=== PATIENT | female | born 1965 | race Caucasian/White ===

== ENCOUNTER → 2021-03-30 | Day surgery (SDC) | payer OTHER, MEDICAID ==
[~2021-03-30] VITALS: Ht 149.9 cm; Wt 67.1 kg
[~2021-03-30] MED LIST: AMOX500C PO; ASPI81TA26 PO; ATOR80TA59 PO; CALC-211 PO; FOLI1TAB11 PO; GABA-282 PO; GNP99TAB3 PO; INSUHUMDS SC; LACRILUBE (AKWA TEARS) OPHTH OINT 3.5 GM As Ordered ONE; LIDOCAINE 2% 100MG/5ML SDV (FOR ANES.) As Ordered ONE; LISI10TA22 PO; MIDAZOLAM INJ 2MG/2ML VIAL (J2250 PER 1MG) As Ordered ONE; PANT40TA29 PO; PLAV1TAB2 PO; PRAM1TAB7 PO; PROBCAP14 PO; ROCURONIUM BROMIDE 50 MG/5 ML VIAL As Ordered ONE; SING10TA32 PO; TOUJ1.2I SC; VITA100054 PO; fentaNYL 100 MCG/2 ML INJECTION As Ordered ONE; propofoL 200 MG/20 ML VIAL As Ordered ONE
== END | disposition home or self-care (01) ==
LOC: M SDC 07:04
PROVIDERS: ATTEND Dentist Oral and Maxillofacial Surgery
DX: Z53.8 Procedure and treatment not carried out for other reasons (principal)

== ENCOUNTER → 2021-04-27 | Day surgery (SDC) | payer OTHER, MEDICAID ==
[~2021-04-27] VITALS: Ht 152.4 cm; Wt 69.4 kg
[~2021-04-27] MED LIST changes: +ACETAMINOPHEN 1000MG 100ML IV BTL (OFIRMEV) (J0131 PER 10MG) As Ordered ONE; -LACRILUBE (AKWA TEARS) OPHTH OINT 3.5 GM As Ordered ONE; +LIDOCAINE 1% MDV 20ML VIAL SQ PRN; -LIDOCAINE 2% 100MG/5ML SDV (FOR ANES.) As Ordered ONE; +LIDOCAINE 2% INJ 100 MG/5 ML SYRINGE As Ordered ONE; +LIDOCAINE W/EPINEPHRINE 1% 20ML VIAL As Ordered ONE; +LR 1,000 ML IV ONE; +ONDANSETRON 4MG/2ML VIAL As Ordered ONE; +SUGAMMADEX SODIUM 500 MG/5 ML VIAL (BRIDION) As Ordered ONE; +dexameTHASONE 4 MG/ML 1ML VIAL (J1100 PER 1MG) As Ordered ONE
[2021-04-27 08:10] VITALS: BP 143/82
== END | disposition home or self-care (01) ==
LOC: M SDC 07:35
PROVIDERS: ATTEND Dentist Oral and Maxillofacial Surgery
DX: Z53.09 Procedure and treatment not carried out because of other contraindication (principal)

== ENCOUNTER 2024-10-09 00:25 | Emergency (ER) | payer OTHER, MEDICAID ==
[~2024-10-09] VITALS: Ht 152.4 cm; Wt 65.9 kg
[~2024-10-09 00:25] MED LIST changes: -ACETAMINOPHEN 1000MG 100ML IV BTL (OFIRMEV) (J0131 PER 10MG) As Ordered ONE; +CHOL25CA2 PO; +CLOP75TA99 PO; +GABA-1172 PO; -GABA-282 PO; -LIDOCAINE 1% MDV 20ML VIAL SQ PRN; -LIDOCAINE 2% INJ 100 MG/5 ML SYRINGE As Ordered ONE; -LIDOCAINE W/EPINEPHRINE 1% 20ML VIAL As Ordered ONE; -LR 1,000 ML IV ONE; -MIDAZOLAM INJ 2MG/2ML VIAL (J2250 PER 1MG) As Ordered ONE; +MONT-5 PO; -ONDANSETRON 4MG/2ML VIAL As Ordered ONE; -PLAV1TAB2 PO; -ROCURONIUM BROMIDE 50 MG/5 ML VIAL As Ordered ONE; -SING10TA32 PO; -SUGAMMADEX SODIUM 500 MG/5 ML VIAL (BRIDION) As Ordered ONE; -VITA100054 PO; -dexameTHASONE 4 MG/ML 1ML VIAL (J1100 PER 1MG) As Ordered ONE; -fentaNYL 100 MCG/2 ML INJECTION As Ordered ONE; -propofoL 200 MG/20 ML VIAL As Ordered ONE
[2024-10-09 01:17] LABS: PLATELET COUNT, AUTOMATED 303 10^3/uL (150-450)
[2024-10-09 01:55] LABS: ALT/SGPT 36 U/L (7.0-40); AST/SGOT 53 U/L (<34); CALCIUM LEVEL 8.6 MG/DL (8.3-10.6); CARBON DIOXIDE LEVEL 21 MMOL/L (20-31); CHLORIDE LEVEL 109 MMOL/L (98-107); CREATININE FOR GFR 0.76 MG/DL (0.55-1.30); GLOMERULAR FILTRATION RATE 89.7 (>45); POTASSIUM SERUM 4.7 MMOL/L (3.5-5.1); SODIUM LEVEL 142 MMOL/L (136-145)
[2024-10-09] MEDS: NS (Normal Saline) 0.9% 1,000 ML IV ONE (05:20)
[2024-10-09 05:27] LABS: ETHYL ALCOHOL (ETHANOL) < 0.003 % (0.000-0.010)
[2024-10-09 05:28] LABS: VENOUS BASE EXCESS -3.1 (-2.0-2.0); VENOUS HCO3 21.9 MMOL/L (23.0-27.0); VENOUS O2 SATURATION 93.6 % (60.0-80.0); VENOUS PARTIAL PRESSURE CO2 38.8 mmHg (38.0-50.0); VENOUS PARTIAL PRESSURE O2 69.3 mmHg (30.0-50.0); VENOUS PH 7.369 UNITS (7.330-7.430); VENOUS STANDARD HCO3 21.8 MMOL/L; VENOUS TOTAL CO2 23.1 MMOL/L (24.0-28.0)
[2024-10-09 05:28] LABS: C REACTIVE PROTEIN QUANTITATIV 3.53 MG/DL (<1.0)
[2024-10-09] MEDS: ACETAMINOPHEN *IV* 1,000 MG in IV 1 EA IV ONE (05:43)
[2024-10-09 05:50] LABS: KETONE, URINE AUTO RFX NEGATIVE (NEGATIVE); LEUKOCYTE ESTERASE UR AUTO RFX NEGATIVE (NEGATIVE); MUCUS, URINE RFX SMALL (NEGATIVE); NITRITE, URINE AUTO RFX NEGATIVE (NEGATIVE); RBC, URINE AUTO RFX 0 /HPF (0-3); SQUAM EPITHELIAL CELL UR AURFX 3 /HPF (0-6); WBC, URINE AUTO RFX 2 /HPF (0-3)
[2024-10-09 06:03] LABS: AMPHETAMINES LEVEL URINE NEGATIVE (NEGATIVE); BARBITURATES URINE NEGATIVE (NEGATIVE); BENZODIAZEPINES URINE NEGATIVE (NEGATIVE); CANNABINOIDS URINE NEGATIVE (NEGATIVE); COCAINE METABOLITE URINE NEGATIVE (NEGATIVE); METHADONE URINE NEGATIVE (NEGATIVE); PHENCYCLIDINE URINE NEGATIVE (NEGATIVE)
[2024-10-09 06:04] LABS: OPIATES URINE POSITIVE (NEGATIVE)
[2024-10-09 09:00] VITALS: BP 149/82; TEMP 97.8
[2024-10-09 09:45] VITALS: O2SAT 98
== END 2024-10-09 10:00 | disposition left against medical advice (07) ==
LOC: M ED 00:25
DX: E11.621 Type 2 diabetes mellitus with foot ulcer (principal); L97.529 Non-pressure chronic ulcer of other part of left foot with unspecified severity; Z53.20 Procedure and treatment not carried out because of patient's decision for unspecified reasons; Z88.1 Allergy status to other antibiotic agents; Z88.5 Allergy status to narcotic agent; Z88.8 Allergy status to other drugs, medicaments and biological substances; Z91.041 Radiographic dye allergy status; I69.351 Hemiplegia and hemiparesis following cerebral infarction affecting right dominant side; K50.90 Crohn's disease, unspecified, without complications; Z79.899 Other long term (current) drug therapy; Z79.4 Long term (current) use of insulin
CPT/HCPCS: 71045; 73630; 80053; 80307; 81001; 82077; 82140; 82803; 83605; 84145; 85027; 86140; 87040; 87486; 87581; 87633; 87798; 96365; 96366; 99285; J0131

== ENCOUNTER 2024-11-21 16:03 | Emergency (ER) | payer OTHER, MEDICAID ==
[~2024-11-21] VITALS: Ht 170.2 cm; Wt 63.2 kg
[2024-11-21] MEDS: LIDOCAINE 2% 5 ML JELLY UROJET TOP ONE (16:20)
[2024-11-21 16:34] LABS: VENOUS BASE EXCESS 0.3 (-2.0-2.0); VENOUS HCO3 23.7 MMOL/L (23.0-27.0); VENOUS O2 SATURATION 97.4 % (60.0-80.0); VENOUS PARTIAL PRESSURE CO2 33.9 mmHg (38.0-50.0); VENOUS PARTIAL PRESSURE O2 101.2 mmHg (30.0-50.0); VENOUS PH 7.463 UNITS (7.330-7.430); VENOUS STANDARD HCO3 24.8 MMOL/L; VENOUS TOTAL CO2 24.8 MMOL/L (24.0-28.0)
[2024-11-21 16:38] LABS: BASO # 0.0 10^3/uL (0.0-0.2); BASO % 0.4 % (0.0-1.0); EOS # 0.4 10^3/uL (0.0-0.5); EOS % 3.8 % (0.0-3.0); LYMPH # 2.0 10^3/uL (1.5-5.0); LYMPH % 21.5 % (24.0-44.0); MONO # 0.7 10^3/uL (0.0-0.8); MONO % 7.3 % (2.0-8.0); NEUTROPHILS # 6.1 10^3/uL (1.5-8.5); NEUTROPHILS % 66.7 % (36.0-66.0); PLATELET COUNT, AUTOMATED 285 10^3/uL (150-450)
[2024-11-21 16:59] LABS: ERYTHROCYTE SEDIMENTATION RATE 78 mm/hr (0-30)
[2024-11-21 17:07] LABS: INR 1.39
[2024-11-21 17:14] LABS: C REACTIVE PROTEIN QUANTITATIV < 0.50 MG/DL (<1.0)
[2024-11-21 17:36] LABS: ALT/SGPT 39 U/L (7.0-40); AST/SGOT 47 U/L (<34); CALCIUM LEVEL 9.7 MG/DL (8.3-10.6); CARBON DIOXIDE LEVEL 24 MMOL/L (20-31); CHLORIDE LEVEL 106 MMOL/L (98-107); CK-MB VALUE MASS 1.4 NG/ML (<3.6); CPK CREATINE PHOSPHOKINASE 91 U/L (34-145); CREATININE FOR GFR 0.69 MG/DL (0.55-1.30); GLOMERULAR FILTRATION RATE > 90.0 (>45); MAGNESIUM LEVEL 1.8 MG/DL (1.8-2.4); MB/CK RELATIVE INDEX 1.53 (< OR =4); POTASSIUM SERUM 4.0 MMOL/L (3.5-5.1); SODIUM LEVEL 139 MMOL/L (136-145)
[2024-11-21 18:14] LABS: CK-MB VALUE MASS 1.3 NG/ML (<3.6)
[2024-11-21 18:16] LABS: KETONE, URINE AUTO RFX NEGATIVE (NEGATIVE); LEUKOCYTE ESTERASE UR AUTO RFX NEGATIVE (NEGATIVE); MUCUS, URINE RFX SMALL (NEGATIVE); NITRITE, URINE AUTO RFX NEGATIVE (NEGATIVE); RBC, URINE AUTO RFX 44 /HPF (0-3); SQUAM EPITHELIAL CELL UR AURFX 6 /HPF (0-6); WBC, URINE AUTO RFX 3 /HPF (0-3)
[2024-11-21 18:24] LABS: CPK CREATINE PHOSPHOKINASE 63 U/L (34-145); MB/CK RELATIVE INDEX 2.06 (< OR =4)
[2024-11-21] MEDS: NS 500 ML IV ONE (20:37)
[2024-11-21] MEDS: ACETAMINOPHEN *IV* 1,000 MG in IV 1 EA IV ONE (20:38)
[2024-11-21 22:30] VITALS: BP 116/82; TEMP 96.3; O2SAT 98
== END 2024-11-21 22:45 | disposition home or self-care (01) ==
LOC: M ED 16:03
DX: R56.9 Unspecified convulsions (principal); R19.7 Diarrhea, unspecified; S22.32XA Fracture of one rib, left side, initial encounter for closed fracture; M41.82 Other forms of scoliosis, cervical region; I45.81 Long QT syndrome; I25.119 Atherosclerotic heart disease of native coronary artery with unspecified angina pectoris; Z87.891 Personal history of nicotine dependence; Z79.1 Long term (current) use of non-steroidal anti-inflammatories (NSAID); Z79.4 Long term (current) use of insulin; Z79.899 Other long term (current) drug therapy; X58.XXXA Exposure to other specified factors, initial encounter
CPT/HCPCS: 51701; 70450; 71045; 71250; 72125; 74176; 80047; 80048; 80076; 81001; 82150; 82550; 82553; 82803; 83605; 83690; 83735; 84145; 84484; 85025; 85610; 85652; 85730; 86140; 86850; 86900; 86901; 87040; 87486; 87507; 87581; 87633; 87798; 93005; 93041; 94760; 96365; 96375; 99285; J0131; J2060

== ENCOUNTER 2025-01-20 16:19 | Inpatient (IN) | payer OTHER, MEDICAID ==
[~2025-01-20] VITALS: Ht 157.5 cm; Wt 61.6 kg
[~2025-01-20 16:19] MED LIST changes: -CHOL25CA2 PO; +D3 H10003 PO
[2025-01-20 16:32] VITALS: TEMP 96
[2025-01-20 17:53] LABS: BASO # 0.0 10^3/uL (0.0-0.2); BASO % 0.0 % (0.0-1.0); EOS # 0.3 10^3/uL (0.0-0.5); EOS % 3.9 % (0.0-3.0); LYMPH # 1.9 10^3/uL (1.5-5.0); LYMPH % 28.3 % (24.0-44.0); MONO # 0.4 10^3/uL (0.0-0.8); MONO % 5.8 % (2.0-8.0); NEUTROPHILS # 4.1 10^3/uL (1.5-8.5); NEUTROPHILS % 61.9 % (36.0-66.0); PLATELET COUNT, AUTOMATED 321 10^3/uL (150-450)
[2025-01-20 18:14] LABS: C REACTIVE PROTEIN QUANTITATIV 0.69 MG/DL (<1.0)
[2025-01-20 18:15] LABS: INR 1.07
[2025-01-20 18:23] LABS: ALT/SGPT 20 U/L (7.0-40); AST/SGOT 20 U/L (<34); CALCIUM LEVEL 8.5 MG/DL (8.3-10.6); CARBON DIOXIDE LEVEL 21 MMOL/L (20-31); CHLORIDE LEVEL 112 MMOL/L (98-107); CREATININE FOR GFR 0.70 MG/DL (0.55-1.30); GLOMERULAR FILTRATION RATE > 90.0 (>45); POTASSIUM SERUM 3.6 MMOL/L (3.5-5.1); SODIUM LEVEL 143 MMOL/L (136-145)
[2025-01-20] MEDS: VANCOMYCIN HCL 1,250 MG, VIAL MATE ADAPTER 1 EACH in NS 250 ML IV ONE (19:05)
[2025-01-20] MEDS: PRAMIPEXOLE 1 MG TAB PO SCH (21:00)
[2025-01-20] MEDS: busPIRone 5 MG TAB PO SCH (21:00)
[2025-01-20] MEDS ORDERED: FLUO-365 PO (21:01)
[2025-01-20] MEDS ORDERED: BUSP1TAB PO (21:01)
[2025-01-20] MEDS ORDERED: HOME MED LIST COMPLETE! XX SCH (21:05)
[2025-01-20] MEDS ORDERED: VANCOMYCIN HCL 1,000 MG in IV FLUID PLACE HOLDER 1 EA IV SCH (21:45)
[2025-01-20] MEDS ORDERED: AZTREONAM 2 GM in DEXTROSE 5% (D5W) MINI-BAG PLU 100 ML IV SCH (21:45)
[2025-01-20 22:53] LABS: METHADONE URINE NEGATIVE (NEGATIVE)
[2025-01-20 22:54] LABS: AMPHETAMINES LEVEL URINE NEGATIVE (NEGATIVE); BARBITURATES URINE NEGATIVE (NEGATIVE); CANNABINOIDS URINE NEGATIVE (NEGATIVE); COCAINE METABOLITE URINE NEGATIVE (NEGATIVE); OPIATES URINE NEGATIVE (NEGATIVE); PHENCYCLIDINE URINE NEGATIVE (NEGATIVE)
[2025-01-20 22:58] LABS: BENZODIAZEPINES URINE POSITIVE (NEGATIVE)
[2025-01-20 23:39] LABS: ESTIMATED AVERAGE GLUCOSE 143.0 MG/DL (60-110)
[2025-01-20] MEDS ORDERED: GLUCAGON INJ 1 MG VIAL SC PRN (23:40)
[2025-01-20] MEDS ORDERED: DEXTROSE 50% 50 ML SYRINGE IV PRN (23:40)
[2025-01-20] MEDS ORDERED: GLUCOSE 4 GM CHEW PO PRN (23:40)
[2025-01-21] MEDS: LanTUS (INSULIN GLARGINE INJ) 1 UNITS/0.01 ML SC SCH (00:06)
[2025-01-21] MEDS ORDERED: PILL CUTTER 1 EACH XX PRN (00:10)
[2025-01-21 01:31] VITALS: BP 122/59; O2SAT 95
[2025-01-21] MEDS: CEFEPIME HCL 2 GM in DEXTROSE 5% (D5W) ADV/MINI-BAG 50 ML IV SCH (02:59)
[2025-01-21] MEDS: VANCOMYCIN HCL 750 MG, VIAL MATE ADAPTER 1 EACH in NS 250 ML IV SCH (03:59)
[2025-01-21] MEDS ORDERED: INSULIN LISPRO (NovoLOG) PER UNIT SC SCH ×3 (07:30→21:00)
[2025-01-21] MEDS ORDERED: CLOPIDOGREL 75 MG TAB PO SCH (09:00)
[2025-01-21] MEDS ORDERED: ATORVASTATIN 20 MG TAB PO SCH (09:00)
[2025-01-21] MEDS ORDERED: ASPIRIN 81 MG ENTERIC TABLET PO SCH (09:00)
[2025-01-21] MEDS ORDERED: FOLIC ACID 1 MG TAB PO SCH (09:00)
[2025-01-21] MEDS ORDERED: ENOXAPARIN 40 MG/0.4 ML SYRINGE (J1650 PER 10MG) SC SCH (09:00)
[2025-01-21] MEDS ORDERED: FLUoxetine 20 MG CAP PO SCH (09:00)
[2025-01-21] MEDS ORDERED: PANTOPRAZOLE 40MG TAB PO SCH (09:00)
[2025-01-21] MEDS ORDERED: ACETAMINOPHEN 325 MG TAB PO PRN (09:30)
[2025-01-21] MEDS ORDERED: LanTUS (INSULIN GLARGINE INJ) 1 UNITS/0.01 ML SC SCH (21:00)
== END 2025-01-21 05:16 | disposition left against medical advice (07) | DRG 638 ==
LOC: EDBD 16:19 → M ED 16:19 → M ED INP 21:43
PROVIDERS: ADMIT Student in an Organized Health Care Education/Training Program; ATTEND Student in an Organized Health Care Education/Training Program
DX: E11.621 Type 2 diabetes mellitus with foot ulcer (principal); I69.351 Hemiplegia and hemiparesis following cerebral infarction affecting right dominant side; D50.9 Iron deficiency anemia, unspecified; F32.A Depression, unspecified; I10 Essential (primary) hypertension; L97.519 Non-pressure chronic ulcer of other part of right foot with unspecified severity; F41.9 Anxiety disorder, unspecified; Z89.512 Acquired absence of left leg below knee; Z79.4 Long term (current) use of insulin; Z79.82 Long term (current) use of aspirin; Z79.02 Long term (current) use of antithrombotics/antiplatelets; Z79.899 Other long term (current) drug therapy; Z88.0 Allergy status to penicillin; Z88.1 Allergy status to other antibiotic agents; Z88.5 Allergy status to narcotic agent; Z88.2 Allergy status to sulfonamides; Z88.7 Allergy status to serum and vaccine; Z88.8 Allergy status to other drugs, medicaments and biological substances

== ENCOUNTER 2025-02-04 02:59 | Emergency (ER) | payer OTHER, MEDICAID ==
[~2025-02-04] VITALS: Ht 152.4 cm; Wt 65.9 kg
[~2025-02-04 02:59] MED LIST changes: +BUSP1TAB PO; +FLUO-365 PO
[2025-02-04] MEDS ORDERED: ISOVUE-370 76% 100 ML VIAL As Ordered ONE (04:18)
[2025-02-04 04:23] LABS: BASO # 0.0 10^3/uL (0.0-0.2); BASO % 0.2 % (0.0-1.0); EOS # 0.4 10^3/uL (0.0-0.5); EOS % 3.9 % (0.0-3.0); LYMPH # 1.9 10^3/uL (1.5-5.0); LYMPH % 20.9 % (24.0-44.0); MONO # 0.5 10^3/uL (0.0-0.8); MONO % 5.4 % (2.0-8.0); NEUTROPHILS # 6.3 10^3/uL (1.5-8.5); NEUTROPHILS % 69.3 % (36.0-66.0); PLATELET COUNT, AUTOMATED 243 10^3/uL (150-450)
[2025-02-04] MEDS: NS 500 ML IV ONE (04:25)
[2025-02-04] MEDS: diphenhydrAMINE 50 MG/ML VIAL IV STA (04:25)
[2025-02-04 04:52] LABS: C REACTIVE PROTEIN QUANTITATIV < 0.50 MG/DL (<1.0); CALCIUM LEVEL 8.2 MG/DL (8.3-10.6); CARBON DIOXIDE LEVEL 21 MMOL/L (20-31); CHLORIDE LEVEL 112 MMOL/L (98-107); CREATININE FOR GFR 0.65 MG/DL (0.55-1.30); GLOMERULAR FILTRATION RATE > 90.0 (>45); POTASSIUM SERUM 4.3 MMOL/L (3.5-5.1); SODIUM LEVEL 145 MMOL/L (136-145)
[2025-02-04] MEDS ORDERED: OXYCODONE/APAP 5MG/325MG(HOME DOSE PACK) PO ONE (05:30)
[2025-02-04] MEDS ORDERED: ONDA-282 PO (06:48)
[2025-02-04] MEDS: PERCOCET 5MG/325MG TAB PO ONE (09:20)
[2025-02-04 09:32] VITALS: BP 136/97; TEMP 96.6; O2SAT 96
[2025-02-04] MEDS: OXYCODONE/APAP 5MG/325MG(HOME DOSE PACK) PO ONE (09:53)
== END 2025-02-04 11:23 | disposition home or self-care (01) ==
LOC: M ED 02:59 → EDBD 02:59 → M ED 11:23
DX: G64 Other disorders of peripheral nervous system (principal); E11.9 Type 2 diabetes mellitus without complications; I10 Essential (primary) hypertension; E78.5 Hyperlipidemia, unspecified; E55.9 Vitamin D deficiency, unspecified; K50.90 Crohn's disease, unspecified, without complications; F32.A Depression, unspecified; Z88.0 Allergy status to penicillin; Z88.7 Allergy status to serum and vaccine; Z88.8 Allergy status to other drugs, medicaments and biological substances; Z91.041 Radiographic dye allergy status; Z79.1 Long term (current) use of non-steroidal anti-inflammatories (NSAID); Z79.4 Long term (current) use of insulin; Z79.899 Other long term (current) drug therapy
CPT/HCPCS: 72131; 73502; 73701; 80047; 80048; 83605; 85025; 86140; 93971; 96374; 96375; 99284; J1200; J2919; J3010; Q9967